=== PATIENT | female | born 1995 | race Caucasian/White ===

== ENCOUNTER 2019-04-06 12:12 | Inpatient (IN) | payer OTHER ==
[2019-04-06] MEDS ORDERED: SODIUM CHLORIDE 0.9% 1,000 ML IV STA (13:40)
[2019-04-06] MEDS ORDERED: MORPHINE SULFATE 4 MG/ML SYRINGE IVP STA ×2 (13:40→15:32)
[2019-04-06] MEDS ORDERED: ONDANSETRON 4 MG/2 ML VIAL IVP STA (13:40)
[2019-04-06 14:11] LABS: Anisocytosis Slight; Basophils # (A) 0.1 k/uL (0-0.2); Basophils % (A) 1 %; Eosinophils % (A) 0 %; HCT 30.8 % (34.0-46.0); HGB 9.3 gm/dL (11.4-16.0); Hypochromasia Marked; Lymphocytes # (A) 1.1 k/uL (1.0-4.8); Lymphocytes % (A) 10 %; MCH 21.4 pg (25.0-35.0); MCHC 30.3 g/dL (31.0-37.0); MCV 70.7 fL (80.0-100.0); Mean Platelet Volume 7.7; Microcytosis Marked; Monocytes # (A) 0.4 k/uL (0-1.0); Monocytes % (A) 3 %; Neutrophils # (A) 9.4 k/uL (1.3-7.7); Neutrophils % (A) 85 %; Platelet Count 295 k/uL (150-450); RBC 4.36 m/uL (3.80-5.40); RDW 19.1 % (11.5-15.5); WBC 11.1 k/uL (3.8-10.6)
[2019-04-06 14:26] LABS: ALT 16 U/L (4-34); AST 24 U/L (14-36); African American GFR (CKD) >90 (>60 ml/min/1.73 sqM); Albumin 3.9 g/dL (3.5-5.0); Alkaline Phosphatase 68 U/L (38-126); Amylase 54 U/L (30-110); Anion Gap 10 mmol/L; Blood Urea Nitrogen 15 mg/dL (7-17); Calcium 8.8 mg/dL (8.4-10.2); Carbon Dioxide 23 mmol/L (22-30); Chloride 105 mmol/L (98-107); Glucose 88 mg/dL (74-99); Non-African American GFR(CKD) 87 (>60 ml/min/1.73 sqM); Potassium 3.3 mmol/L (3.5-5.1); Sodium 138 mmol/L (137-145); Total Bilirubin 0.4 mg/dL (0.2-1.3); Total Protein 7.1 g/dL (6.3-8.2)
[2019-04-06 14:28] LABS: Amorphous Sediment,Urine Rare /hpf; Appearance,Urine Clear (Clear); Bilirubin,Urine Negative (Negative); Blood,Urine Large (Negative); Color,Urine Yellow; Glucose,Urine (UA) Negative (Negative); Ketones,Urine Negative (Negative); Leukocyte Esterase,Urine Negative (Negative); Mucus,Urine Rare /hpf; Nitrite,Urine Negative (Negative); PH, Urine 6.5 (5.0-8.0); Protein,Urine Trace (Negative); RBC,Urine >182 /hpf (0-5); Specific Gravity,Urine 1.016 (1.001-1.035); Squamous Epithelial Cell,Urine 3 /hpf (0-4); Urobilinogen,Urine <2.0 mg/dL (<2.0); WBC,Urine 7 /hpf (0-5)
--- NOTE | 2019-04-06 15:03 | ED ---
Abdominal Pain HPI - General Chief Complaint: Abdominal Pain Stated Complaint: ulcerative colitis Time Seen by Provider: 04/06/19 12:52 Source: patient Mode of arrival: ambulatory Limitations: no limitations - History of Present Illness Initial Comments: Patient is a 23-year-old female presenting to emergency Department with complaints of abdominal pain and weakness that has been increasing over the past week. Patient has history of ulcerative colitis and sees Dr. Ruiz. She did see Dr. Ruiz's PA today and they recommended her going to the ER for dehydration and possible admission. Patient states she has been in remission for approximately 2 years until about this past January. She started to have more frequent flareups and has not been eating very much. The last week she has been having intermittent abdominal pain, nausea, vomiting and no appetite. Patient is also been having frequent bouts of diarrhea with bloody stool. She has been on steroids for the past month and is currently on 20 mg of prednisone. In addition, patient has a positive for influenza B this past week so she has been coughing as well. Patient denies fever, shortness of breath. She has no other complaints at this time. Upon arrival to the ER, her vital signs are stable. - Related Data Allergies Allergy/AdvReac Type Severity Reaction Status Date / Time No Known Allergies Allergy Verified 04/06/19 12:24 Review of Systems ROS Statement: Those systems with pertinent positive or pertinent negative responses have been documented in the HPI. ROS Other: All systems not noted in ROS Statement are negative. Past Medical History Past Medical History: Rheumatoid Arthritis (RA) Additional Past Medical History / Comment(s): ulcerative colitis, lupus, autoimmune pancreatitis History of Any Multi-Drug Resistant Organisms: C-DIFF Date of last positivie culture/infection: 2017 Past Surgical History: Section, Orthopedic Surgery Past Psychological History: No Psychological Hx Reported Smoking Status: Never smoker Past Alcohol Use History: None Reported Past Drug Use History: None Reported General Exam - General Exam Comments Initial Comments: GENERAL: Well-appearing, well-nourished and in no acute distress. HEAD: Atraumatic, normocephalic. EYES: Pupils equal round and reactive to light, extraocular movements intact, sclera anicteric, conjunctiva are normal. ENT: TMs normal, nares patent, oropharynx clear without exudates. Dry mucous membranes. NECK: Normal range of motion, supple without lymphadenopathy or JVD. LUNGS: Breath sounds clear to auscultation bilaterally and equal. No wheezes rales or rhonchi. HEART: Regular rate and rhythm without murmurs, rubs or gallops. ABDOMEN: Mild generalized abdominal tenderness, slightly increased epigastric and right upper quadrant. Soft, normoactive bowel sounds. No guarding, no rebound. No masses appreciated. : Deferred EXTREMITIES: Normal range of motion, no pitting or edema. No clubbing or cyanosis. NEUROLOGICAL: Normal speech, normal gait. PSYCH: Normal mood, normal affect. SKIN: Warm, Dry, normal turgor, no rashes or lesions noted. Limitations: no limitations Course Vital Signs 04/06/19 04/06/19 04/06/19 12:21 14:01 15:32 Temperature 98.0 F 98.9 F Pulse Rate 73 77 72 Respiratory 19 18 16 Rate Blood Pressure 138/86 137/92 128/79 O2 Sat by Pulse 99 98 99 Oximetry 04/06/19 16:15 Temperature Pulse Rate 69 Respiratory 16 Rate Blood Pressure 111/81 O2 Sat by Pulse 98 Oximetry Medical Decision Making - Medical Decision Making Patient is a 23-year-old female presenting with UC flareup. Patient was sent in by Dr. Ruiz's office for her dehydration and acute flareup. Vital signs are stable upon arrival. Patient's lab work shows slight leukocytosis at 11.1, hemoglobin is 9.3 which patient states is elevated from last month from 8.2. Potassium is slightly low at 3.3, lactic acid is 1.7, and amylase and lipase are normal. Urine shows no signs of infection. Patient is given fluids and pain control. She reports only mild improvement in her symptoms. Given patient's history and current symptoms, patient would be admitted for IV fluids and a consult to GI, Dr. Ruiz. She is in agreement with this plan of care. Patient was accepted by Dr. Guaman. Case discussed with Dr. Izaguirre. - Lab Data Result diagrams: 04/06/19 13:05 04/06/19 13:05 Lab Results 04/06/19 04/06/19 04/06/19 Range/Units 13:05 13:05 13:05 WBC 11.1 H (3.8-10.6) k/uL RBC 4.36 (3.80-5.40) m/uL Hgb 9.3 L (11.4-16.0) gm/dL Hct 30.8 L (34.0-46.0) % MCV 70.7 L (80.0-100.0) fL MCH 21.4 L (25.0-35.0) pg MCHC 30.3 L (31.0-37.0) g/dL RDW 19.1 H (11.5-15.5) % Plt Count 295 (150-450) k/uL Neutrophils % 85 % Lymphocytes % 10 % Monocytes % 3 % Eosinophils % 0 % Basophils % 1 % Neutrophils # 9.4 H (1.3-7.7) k/uL Lymphocytes # 1.1 (1.0-4.8) k/uL Monocytes # 0.4 (0-1.0) k/uL Eosinophils # 0.0 (0-0.7) k/uL Basophils # 0.1 (0-0.2) k/uL Hypochromasia Marked Anisocytosis Slight Microcytosis Marked Sodium 138 (137-145) mmol/L Potassium 3.3 L (3.5-5.1) mmol/L Chloride 105 (98-107) mmol/L Carbon Dioxide 23 (22-30) mmol/L Anion Gap 10 mmol/L BUN 15 (7-17) mg/dL Creatinine 0.93 (0.52-1.04) mg/dL Est GFR (CKD-EPI)AfAm >90 (>60 ml/min/1.73 sqM) Est GFR (CKD-EPI)NonAf 87 (>60 ml/min/1.73 sqM) Glucose 88 (74-99) mg/dL Plasma Lactic Acid Seth (0.7-2.0) mmol/L Calcium 8.8 (8.4-10.2) mg/dL Total Bilirubin 0.4 (0.2-1.3) mg/dL AST 24 (14-36) U/L ALT 16 (4-34) U/L Alkaline Phosphatase 68 (38-126) U/L Total Protein 7.1 (6.3-8.2) g/dL Albumin 3.9 (3.5-5.0) g/dL Amylase 54 (30-110) U/L Lipase 112 (23-300) U/L Urine Color Urine Appearance (Clear) Urine pH (5.0-8.0) Ur Specific [place] (1.001-1.035) Urine Protein (Negative) Urine Glucose (UA) (Negative) Urine Ketones (Negative) Urine Blood (Negative) Urine Nitrite (Negative) Urine Bilirubin (Negative) Urine Urobilinogen (<2.0) mg/dL Ur Leukocyte Esterase (Negative) Urine RBC (0-5) /hpf Urine WBC (0-5) /hpf Ur Squamous Epith Cells (0-4) /hpf Amorphous Sediment (None) /hpf Urine Mucus (None) /hpf Urine HCG, Qual Not Detected (Not Detectd) 04/06/19 04/06/19 Range/Units 13:05 13:45 WBC (3.8-10.6) k/uL RBC (3.80-5.40) m/uL Hgb (11.4-16.0) gm/dL Hct (34.0-46.0) % MCV (80.0-100.0) fL MCH (25.0-35.0) pg MCHC (31.0-37.0) g/dL RDW (11.5-15.5) % Plt Count (150-450) k/uL Neutrophils % % Lymphocytes % % Monocytes % % Eosinophils % % Basophils % % Neutrophils # (1.3-7.7) k/uL Lymphocytes # (1.0-4.8) k/uL Monocytes # (0-1.0) k/uL Eosinophils # (0-0.7) k/uL Basophils # (0-0.2) k/uL Hypochromasia Anisocytosis Microcytosis Sodium (137-145) mmol/L Potassium (3.5-5.1) mmol/L Chloride (98-107) mmol/L Carbon Dioxide (22-30) mmol/L Anion Gap mmol/L BUN (7-17) mg/dL Creatinine (0.52-1.04) mg/dL Est GFR (CKD-EPI)AfAm (>60 ml/min/1.73 sqM) Est GFR (CKD-EPI)NonAf (>60 ml/min/1.73 sqM) Glucose (74-99) mg/dL Plasma Lactic Acid Seth 1.7 (0.7-2.0) mmol/L Calcium (8.4-10.2) mg/dL Total Bilirubin (0.2-1.3) mg/dL AST (14-36) U/L ALT (4-34) U/L Alkaline Phosphatase (38-126) U/L Total Protein (6.3-8.2) g/dL Albumin (3.5-5.0) g/dL Amylase (30-110) U/L Lipase (23-300) U/L Urine Color Yellow Urine Appearance Clear (Clear) Urine pH 6.5 (5.0-8.0) Ur Specific [place] 1.016 (1.001-1.035) Urine Protein Trace H (Negative) Urine Glucose (UA) Negative (Negative) Urine Ketones Negative (Negative) Urine Blood Large H (Negative) Urine Nitrite Negative (Negative) Urine Bilirubin Negative (Negative) Urine Urobilinogen <2.0 (<2.0) mg/dL Ur Leukocyte Esterase Negative (Negative) Urine RBC >182 H (0-5) /hpf Urine WBC 7 H (0-5) /hpf Ur Squamous Epith Cells 3 (0-4) /hpf Amorphous Sediment Rare H (None) /hpf Urine Mucus Rare H (None) /hpf Urine HCG, Qual (Not Detectd) Disposition Clinical Impression: Dehydration, Ulcerative colitis, chronic Disposition: ADMITTED IP TO THIS [facility] Condition: Stable Is patient prescribed a controlled substance at d/c from ED?: No Decision Date: 04/06/19 Decision Time: 15:35
[2019-04-06] MEDS ORDERED: ACETAMINOPHEN TAB 325 MG TAB PO PRN (15:32)
[2019-04-06] MEDS ORDERED: NALOXONE 0.4 MG/ML 1 ML VIAL IV PRN (15:32)
[2019-04-06] MEDS: traMADol 50 MG TAB PO PRN (19:59)
[2019-04-06] MEDS: MORPHINE SULFATE 4 MG/ML SYRINGE IV PRN (21:29)
[2019-04-06] MEDS: SODIUM CHLORIDE 0.9% 1,000 ML IV SCH (21:32)
[2019-04-06] MEDS: ONDANSETRON 4 MG/2 ML VIAL IVP PRN (22:19)
[2019-04-07] MEDS: MORPHINE SULFATE 4 MG/ML SYRINGE IV PRN ×6 (01:29→22:05)
[2019-04-07] MEDS: traMADol 50 MG TAB PO PRN ×4 (02:00→19:25)
[2019-04-07] MEDS: SODIUM CHLORIDE 0.9% 1,000 ML IV SCH ×2 (05:43→19:26)
[2019-04-07] MEDS: ONDANSETRON 4 MG/2 ML VIAL IVP PRN ×2 (07:42→20:43)
[2019-04-07] MEDS: PANTOPRAZOLE 40 MG/10 ML VIAL IV SCH (08:38)
[2019-04-07 11:06] LABS: Anisocytosis Slight; Basophils % (A) 0 %; Eosinophils % (A) 0 %; HGB 8.4 gm/dL (11.4-16.0); Hypochromasia Marked; Lymphocytes # (A) 2.6 k/uL (1.0-4.8); Lymphocytes % (A) 28 %; MCH 21.8 pg (25.0-35.0); MCV 72.6 fL (80.0-100.0); Mean Platelet Volume 7.8; Microcytosis Moderate; Monocytes # (A) 0.6 k/uL (0-1.0); Monocytes % (A) 7 %; Neutrophils # (A) 5.8 k/uL (1.3-7.7); Neutrophils % (A) 62 %; Platelet Count 270 k/uL (150-450); RBC 3.85 m/uL (3.80-5.40); RDW 19.4 % (11.5-15.5); WBC 9.4 k/uL (3.8-10.6)
[2019-04-07] MEDS: methylPREDNISolone SOD SUCCI 40 MG/ML 1 ML VIAL IV SCH ×2 (11:35→18:07)
[2019-04-07 11:51] VITALS: BMI 17.2
--- NOTE | 2019-04-07 13:09 | P.HPIM ---
History of Present Illness H&P Date: 04/07/19 Chief Complaint: Abdominal cramping History of presenting complaint: This is a very pleasant 43-year-old patient who follows with Dr. Richard. Patient also sees Dr. Kim the visualizer. Also follows with Dr. Danuta Ruiz the freight inspector. Patient has a known diagnosis of rheumatoid arthritis, autoimmune pancreatitis, ulcerative colitis and lupus. Patient also previously had the LEEP procedure for cervical cancer. Patient had been in remission for last 2 years. About 56 weeks ago patient started having increasing abdominal cramping and bloating of bloody stools. Patient is now up to eat today bloody stools a day. Patient's been losing weight not really able to eat much. Has been admitted fever up to 103. Surekha become rather dry. Sometimes get blis ters on the bouts of nose. Eyes are dry. Note note trouble with her menstrual cycle. In the evening of February states she Mildred the nurse practitioner Dr. Washington's office is put on prednisone. Decreased pedal for the same. His as prednisone was being weaned off her symptoms became worse. Also for 3 days patient been having cough congestion chest tightness., And went to Dr. Richard in the office and was found to be positive for influenza B. Patient went for the same. Started on IV fluids and Solu-Medrol. Review of systems: GEN.: Weak tired rundown and also weight EYES: None HEENT: None NECK: None RESPIRATORY: As above CARDIOVASCULAR: None GASTROINTESTINAL: As above GENITOURINARY: Currently on her menstrual cycle MUSCULOSKELETAL: None LYMPHATICS: None HEMATOLOGICAL: None PSYCHIATRY: None NEUROLOGICAL: None Past medical history to include: Rheumatoid arthritis, autoimmune pancreatitis, ulcerative colitis, pupils, cervical cancer with LEEP procedure Social history: Does not smoke or drink cold. 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 Lives with her parents. Physical examination: VITAL SIGNS: 98, 73, 19, 138/86, 99% room air GENERAL: BMI 17.3, propped in bed tired appearing. EYES: [Pupils equal. Conjunctiva pale l. HEENT: External appearance of nose and ears normal, oral cavity grossly normal. NECK: JVD not raised; masses not palpable. HEART: First and second heart sounds are normal; no edema. LUNGS: Respiratory rate increased, slightly decreased breath sounds. ABDOMEN: Soft, diffuse mild tenderness, no guarding rigidity, liver spleen not palpable, no masses palpable. PSYCH: Alert and oriented x3; mood and affect slightly anxiousl. NEUROLOGICAL: Cranial nerves grossly intact; no facial asymmetry, power and sensation grossly intact. LYMPHATICS: No lymph nodes palpable in the axilla and neck INVESTIGATIONS, reviewed in the clinical context: White count 10.1 hemoglobin 8.4 platelets 270 potassium 3.3 creatinine 0.9 C-reactive protein 11 Assessment: -Acute severe flare of ulcerative colitis, to rule out C. diff -Chronic rheumatoid arthritis -Autoimmune pancreatitis given-chronic lupus -Moderate protein calorie malnutrition from decreased oral intake -Macrocytic anemia chronic disease, and blood loss anemia from GI tract Plan: Patient is clear liquids. IV Solu-Medrol. GI was consulted. Care was discussed with the patient question were answered. Venodyne boots for DVT prophylaxis. Past Medical History Past Medical History: Rheumatoid Arthritis (RA) Additional Past Medical History / Comment(s): ulcerative colitis, lupus, autoimmune pancreatitis. HASNT HAD FLARE OF COLITIS OR PANCREATITIS FOR 2 YEARS. THIS PAST MONTH WITH WORSENING BELLY SYMPTOMS History of Any Multi-Drug Resistant Organisms: C-DIFF Date of last positivie culture/infection: 2016 MDRO Source:: STOOL Past Surgical History: Section, Orthopedic Surgery Past Psychological History: No Psychological Hx Reported, Unable to Obtain Smoking Status: Never smoker Past Alcohol Use History: None Reported Past Drug Use History: None Reported - Past Family History Mother Family Medical History: Diabetes Mellitus, Hyperlipidemia, Hypertension, Thyroid Disorder Father History Unknown: Yes Family Medical History: Hypertension Medications and Allergies Home Medications Medication Instructions Recorded Confirmed Type Iron Infusion 100 mg IVPB Q56D 04/06/19 04/06/19 History Multivitamins, Thera [Multivitamin 1 tab PO DAILY 04/06/19 04/06/19 History (formulary)] inFLIXimab [Remicade] 400 mg IVPB Q42D 04/06/19 04/06/19 History predniSONE See Taper PO DAILY 04/06/19 04/06/19 History Allergies Allergy/AdvReac Type Severity Reaction Status Date / Time No Known Allergies Allergy Verified 04/06/19 17:38 Physical Exam Vitals: Vital Signs Temp Pulse Pulse Resp BP BP Pulse Ox 04/07/19 08:48 98.0 F 66 16 107/44 99 04/07/19 00:19 97.7 F 58 L 16 108/70 100 04/07/19 00:00 65 16 04/06/19 20:13 97.9 F 65 16 97/69 100 04/06/19 17:30 98.0 F 57 L 20 116/74 98 04/06/19 16:59 98.2 F 04/06/19 16:15 69 16 111/81 98 04/06/19 15:32 72 16 128/79 99 04/06/19 14:01 98.9 F 77 18 137/92 98 04/06/19 12:21 98.0 F 73 19 138/86 99 Intake and Output 04/06/19 04/07/19 04/07/19 22:59 06:59 14:59 Intake Total 125 Output Total 325 300 550 Balance -200 -300 -550 Intake: Oral 125 Output: Urine 325 200 400 Emesis 100 150 Other: Voiding Method Toilet Toilet # Emeses 1 Weight 40.1 kg Results CBC & Chem 7: 04/07/19 10:14 04/06/19 13:05 Labs: Abnormal Lab Results - Last 24 Hours (Table) 04/06/19 04/06/19 04/06/19 Range/Units 13:05 13:05 13:05 WBC 11.1 H (3.8-10.6) k/uL Hgb 9.3 L (11.4-16.0) gm/dL Hct 30.8 L (34.0-46.0) % MCV 70.7 L (80.0-100.0) fL MCH 21.4 L (25.0-35.0) pg MCHC 30.3 L (31.0-37.0) g/dL RDW 19.1 H (11.5-15.5) % Neutrophils # 9.4 H (1.3-7.7) k/uL Potassium 3.3 L (3.5-5.1) mmol/L Urine Protein Trace H (Negative) Urine Blood Large H (Negative) Urine RBC >182 H (0-5) /hpf Urine WBC 7 H (0-5) /hpf Amorphous Sediment Rare H (None) /hpf Urine Mucus Rare H (None) /hpf Thrombosis Risk Factor Assmnt - Choose All That Apply Any of the Below Risk Factors Present?: No Other congenital or acquired thrombophilia - If yes, enter type in comment: No
[2019-04-07 14:30] LABS: Erythrocyte Sedimentation Rate 16 mm/hr (0-20)
[2019-04-08] MEDS: methylPREDNISolone SOD SUCCI 40 MG/ML 1 ML VIAL IV SCH ×4 (00:46→23:58)
[2019-04-08] MEDS: traMADol 50 MG TAB PO PRN ×3 (01:57→21:15)
[2019-04-08] MEDS: MORPHINE SULFATE 4 MG/ML SYRINGE IV PRN ×6 (01:58→23:01)
[2019-04-08] MEDS: SODIUM CHLORIDE 0.9% 1,000 ML IV SCH ×2 (06:26→19:15)
--- NOTE | 2019-04-08 06:51 | CONS ---
CONSULTATION DATE OF SERVICE: 04/07/2019. REASON FOR CONSULTATION: Exacerbation of ulcerative colitis. HISTORY OF PRESENT ILLNESS: The patient is 23-year-old pleasant young lady with history of ulcerative colitis diagnosed a few years ago who has been maintained on Remicade infusions on an outpatient basis for the last 2 years and has been in clinical remission. The patient also has history of rheumatoid arthritis for which she follows with Dr. Kim and also has history of autoimmune pancreatitis in the past. Her last Remicade infusion was about 6 weeks ago. Around Thanksgiving time she started having bloody diarrhea with 10 to 15 bowel movements daily. She was seen in the office and was started on oral prednisone at 40 mg daily. Her symptoms have significantly improved. She did have stool studies for C difficile toxin that was negative. When she tapered her prednisone to 20 mg daily, she started having worsening diarrhea with blood and mucus in the stool. She was having about 10 to 15 bowel movements daily and progressive weight loss of 15 pounds in the last 1 month duration. She had low-grade fever and yesterday it was 103. She became extremely dehydrated, very tired, weak and hence came into the emergency room and subsequently admitted to the hospital for further evaluation. She had a CT of the abdomen and pelvis done on an outpatient basis that showed evidence of diffuse colitis. She was started on IV Solu-Medrol 40 mg q.8 hours and this morning she is feeling better. Abdominal pain has improved. She had only one bowel movement today with no blood. No nausea, vomiting. On a clear liquid diet, tolerating well. No fever today. Stool for C difficile toxin has been requested, which is still pending. PAST MEDICAL HISTORY: Significant for ulcerative colitis, autoimmune pancreatitis, rheumatoid arthritis, cervical cancer. PAST SURGICAL HISTORY: Colonoscopy in October of 2018 that showed normal colon with no active colitis, history of a LEEP procedure. SOCIAL HISTORY: No smoking or alcohol use. FAMILY HISTORY: Unremarkable. MEDICATIONS: Medications at home include prednisone 20 mg daily, iron infusion, Remicade infusions 400 mg every 6 weeks, multivitamin. ALLERGIES: None. REVIEW OF SYSTEMS: CARDIOPULMONARY: No chest pain or shortness of breath. GENITOURINARY: No dysuria or hematuria. MUSCULOSKELETAL: Some back pain. NEUROLOGY: Unremarkable. PSYCHIATRY: Unremarkable. ENT/VISION: Unremarkable. CONSTITUTIONAL: Weight loss of 15 pounds. No fever, chills or night sweats. HEMATOLOGY: Unremarkable other than mild anemia. ENDOCRINE: Unremarkable. PHYSICAL EXAMINATION: On physical examination, she appears comfortable, in no apparent distress. Vital signs are stable. Blood pressure 107/72, pulse rate 52, temperature 97.8. HEENT EXAMINATION: Unremarkable. Conjunctivae pink. Sclerae anicteric. Oral cavity no lesions. NECK: No JVD or lymph node enlargement. CHEST: Clear to auscultation. HEART: Regular rate and rhythm. ABDOMEN: Soft. Bowel sounds are positive. No organomegaly. There was mild diffuse tenderness noted. EXTREMITIES: No pedal edema. SKIN: No rashes. NEURO: She is alert and oriented x3. No focal deficits. LABS: WBC 11.1, hemoglobin 9.3, platelets were 295. Basic metabolic panel is within normal limits. Albumin 3.9. CRP is 11. ALT, AST, T-bilirubin and alkaline phosphatase are within normal limits. IMPRESSION: 1. History of ulcerative colitis diagnosed 4 years ago. The patient maintained on Remicade infusions for every 6 weeks for the last 2 years and has been in clinical remission. She started having this flare up with bloody diarrhea and abdominal pain, weight loss for the last 4 weeks duration was started on prednisone on outpatient basis in the beginning of February at 40 mg daily and patient initially responded to the treatment. When the prednisone was decreased to 20 mg daily, she started having worsening symptoms with bloody diarrhea and abdominal pain and hence was admitted to the hospital yesterday. She was started on IV Solu-Medrol and today she had only one bowel movement and feeling much better. Continues to have mild abdominal pain. Remains on a clear liquid diet, tolerating well. Stool for Clostridium difficile toxin has been requested, which was negative. 2. History of Clostridium difficile colitis 1 year ago. 3. Autoimmune pancreatitis, remains stable. 4. History of rheumatoid arthritis. 5. Anemia, most likely secondary to iron deficiency and blood loss. RECOMMENDATIONS: 1. Continue IV Solu-Medrol 40 mg q.8 hours and tomorrow will decrease it to 20 mg q.8 hours. 2. Advance to a full liquid diet. 3. Monitor labs closely. 4. Await stool for C difficile toxin. 5. We will review office records in regard to biologic therapy and consider modification based on her clinical course. Thank you for this consultation. MMODL / IJN: [id number] /
[2019-04-08] MEDS: ONDANSETRON 4 MG/2 ML VIAL IVP PRN ×2 (06:57→16:34)
[2019-04-08] MEDS: PANTOPRAZOLE 40 MG/10 ML VIAL IV SCH (08:50)
--- NOTE | 2019-04-08 16:32 | XR ---
EXAMINATION TYPE: XR abdomen 2V DATE OF EXAM: 04/08/2019 COMPARISON: None INDICATION: Abdominal pain history of colitis TECHNIQUE: Single view abdomen upright and supine views FINDINGS: Nonspecific bowel gas is present. This appears to be colonic. Couple of air-fluid levels are within t he midabdomen. Psoas margins are normal. No organomegaly is present. IMPRESSION: 1. Nonspecific abdomen.
[2019-04-08] MEDS: IOPAMIDOL CONTRAST (ORAL USE) VIAL PO PRN ×2 (16:33→17:18)
--- NOTE | 2019-04-08 19:25 | P.GSCN ---
History of Present Illness Consult date: 04/08/19 Reason for Consult: Abdominal pain History of present illness: 23-year-old female with history of ulcerative colitis. Hospitalized for an exac erbation. Today was found to have increasing upper abdominal pain with bloating. X-ray showed no evidence of perforation. CT abdomen and pelvis shows inflammatory changes extending from the proximal descending colon to the rectum. Patient currently on IV steroids. Outpatient Remicade has been going on for the last few years. She has been on oral steroids for the last 3-4 weeks she states. C. diff was checked and was normal. Patient is afebrile without tachycardia. White blood cell count is normal. Review of Systems The patient denies any acute changes in vision or hearing, no dysphagia or odynophagia, no chest pain or shortness of breath, no dysuria or hematuria, no headache, no runny nose, no unexplained weight loss Past Medical History Past Medical History: Rheumatoid Arthritis (RA) Additional Past Medical History / Comment(s): ulcerative colitis, lupus, autoimmune pancreatitis. HASNT HAD FLARE OF COLITIS OR PANCREATITIS FOR 2 YEARS. THIS PAST MONTH WITH WORSENING BELLY SYMPTOMS History of Any Multi-Drug Resistant Organisms: C-DIFF Year Discovered:: 2017 MDRO Source:: STOOL Past Surgical History: Section, Orthopedic Surgery Past Psychological History: No Psychological Hx Reported, Unable to Obtain Smoking Status: Never smoker Past Alcohol Use History: None Reported Past Drug Use History: None Reported - Past Family History Mother Family Medical History: Diabetes Mellitus, Hyperlipidemia, Hypertension, Thyroid Disorder Father History Unknown: Yes Family Medical History: Hypertension Medications and Allergies Home Medications Medication Instructions Recorded Confirmed Type Iron Infusion 100 mg IVPB Q56D 04/06/19 04/06/19 History Multivitamins, Thera [Multivitamin 1 tab PO DAILY 04/06/19 04/06/19 History (formulary)] inFLIXimab [Remicade] 400 mg IVPB Q42D 04/06/19 04/06/19 History predniSONE See Taper PO DAILY 04/06/19 04/06/19 History Allergies Allergy/AdvReac Type Severity Reaction Status Date / Time No Known Allergies Allergy Verified 04/06/19 17:38 Surgical - Exam Vital Signs Temp Pulse Resp BP Pulse Ox 98.0 F 73 19 138/86 99 04/06/19 12:21 04/06/19 12:21 04/06/19 12:21 04/06/19 12:21 04/06/19 12:21 Physical exam: General: Well-developed, slightly malnourished, appears younger than her age, appears comfortable HEENT: Normocephalic, sclerae nonicteric Abdomen: Mild distention, mild tympany upper abdomen, mild diffuse tenderness without rebound or guarding Extremities: No edema Neuro: Alert and oriented Results - Labs 04/07/19 10:14 04/06/19 13:05 Assessment and Plan (1) Abdominal pain Narrative/Plan: 23-year-old female with worsening abdominal pain and bloating with history of ulcerative colitis. CAT scan reviewed with the patient and her family. Inflammatory changes noted without gross evidence of megacolon or perforation. No definite obstruction seen at this time. Continue nothing by mouth for now. Continue IV steroids. We'll follow closely with you. Current Visit: Yes Status: Acute Code(s): R10.9 - UNSPECIFIED ABDOMINAL PAIN SNOMED Code(s): 85546653
--- NOTE | 2019-04-08 19:53 | PN ---
PROGRESS NOTE DATE OF SERVICE: 04/08/2019 Patient is a 23-year-old pleasant young girl with ulcerative colitis diagnosed 5 years ago, maintained on Remicade infusions for the last 2 years and has been in clinical remission. She started having a flare up since Thanksgiving of last year and has been maintained on prednisone 40 mg daily on an outpatient basis. When she was down to 20 mg daily, she had worsening symptoms of bloody diarrhea, 10-15 bowel movements daily, diffuse abdominal pain and hence admitted to the hospital for further management. She is on IV steroids for the last 3 days. She was gradually improving. However, this morning, she is complaining of worsening abdominal pain with abdominal distention and abdominal bloating. She is not able to tolerate any food intake. She denies any fever, chills, or night sweats. She had 2 bowel movements today, 2 of which were bloody. PHYSICAL EXAMINATION: Blood pressure is 125/88, pulse is 64, temperature 98. HEENT examination unremarkable. Conjunctivae pink. Sclerae anicteric. Oral cavity no lesions. NECK: No JVD or lymph node enlargement. Chest clear to auscultation. HEART: Regular rate and rhythm. ABDOMEN was soft, but it was slightly distended. There was mild diffuse tenderness noted throughout the abdomen, but there was no rebound or rigidity. EXTREMITIES: No pedal edema. SKIN: No rashes. NEUROLOGIC: Alert and oriented x3. No focal deficits. LABS: From today WBC is 9.4, hemoglobin 8.4, platelets 270. CRP was 11. Abdominal x-rays were obtained. Stat abdominal x-rays were obtained which showed nonspecific abdomen. IMPRESSION: 1. Severe flare-up of ulcerative colitis, on IV steroids. 2. Solu-Medrol decreased to 20 mg q.8 hours, developed abdominal distention and abdominal pain. Rule out toxic megacolon. Abdominal x-rays did not show any significant dilation of the colon. No evidence of free air noted. 3. On IV Solu-Medrol 20 mg q.8 hours. 4. History of autoimmune pancreatitis, stable. 5. History of rheumatoid arthritis. RECOMMENDATIONS: 1. Continue with IV Solu-Medrol 20 mg q.8 hours. 2. Repeat labs in the morning. 3. Discussed with Dr. Monaco who was consulted and will obtain a CT of the abdomen and pelvis with contrast to rule out perforation. 4. Keep n.p.o. for now and we will follow her closely during her hospital stay. Thank you for this consultation. MMPHILL / IJN: [id number] /
--- NOTE | 2019-04-08 20:00 | CT ---
EXAMINATION TYPE: CT abdomen pelvis w con DATE OF EXAM: 04/08/2019 COMPARISON: None HISTORY: Abdominal distention. Colitis CT DLP: 293.9 mGycm Automated exposure control for dose reduction was used. CONTRAST: Performed with IV Contrast, patient injected with 100 mL of Isovue 300. Multiple axial sections were obtained from the diaphragm to the floor the pelvis with oral and intrav enous contrast. Lung bases are clear. There is no pleural effusion. Heart size is normal. There is no pericardial eff usion. Liver spleen pancreas gallbladder appear normal. Bile ducts are not dilated. There is no adrenal mass. Stomach appears normal. Kidneys show satisfactory contrast opacification. T here is no hydronephrosis. Delayed images show normal renal excretion. There is no retroperitoneal ad enopathy. Bladder distends smoothly. The uterus is anteverted. There is no free fluid in the pelvis. There is 3 cm cyst on the right ovary. There is 2 cm cyst left ovary. There is normal contrast opacification of the bowel. There is no sign of a bowel obstruction. There i s no ascites or free air. The appendix appears normal. Appendix is medial. There is mild wall thickening of the sigmoid colon. There is very minimal pericolic edema involving t he sigmoid colon. IMPRESSION: Ovarian cysts. There is straightening and mild wall thickening of the sigmoid colon consistent with nonspecific coli tis. Minimal pericolic edema. No evidence of an abscess.
--- NOTE | 2019-04-09 00:53 | P.PN ---
Progress Note - Text Progress Note Date: 04/09/19 Chief Complaint: Abdominal cramping History of presenting complaint: This is a very pleasant 43-year-old patient who follows with Dr. Richard. Patient also sees Dr. Kim the supervisor gate services. Also follows with Dr. Danuta Ruiz the seal skinner. Patient has a known diagnosis of rheumatoid arthritis, autoimmune pancreatitis, ulcerative colitis and lupus. Patient also previously had the LEEP procedure for cervical cancer. Patient had been in remission for last 2 years. About 56 weeks ago patient started having increasing abdominal cramping and bloating of bloody stools. Patient is now up to eat today bloody stools a day. Patient's been losing weight not really able to eat much. Has been admitted fever up to 103. [place] become rather dry. Sometimes get blisters on the bouts of nose. Eyes are dry. Note note trouble with her menstrual cycle. In the evening of February states she Mildred the nurse practitioner Dr. Washington's office is put on prednisone. Decreased pedal for the same. His as prednisone was being weaned off her symptoms became worse. Also for 3 days patient been having cough congestion chest tightness., And went to Dr. Richard in the office and was found to be positive for influenza B. Patient went for the same. Started on IV fluids and Solu-Medrol. Admitted with severe flareup of ulcerative colitis. Recently positive for him. He Today-has had no further diarrhea since yesterday. No blood in the stool. Small flecks of mucus. Abdominal cramping is better. Did tolerate some liquid diet. Respiratory symptoms much improved. Patient's boyfriend at the bedside Review of systems: Was done for constitutional, cardiovascular, GI, pulmonary. relevant finding as above Active Medications Acetaminophen (Tylenol Tab) 650 mg PO Q6HR PRN PRN Reason: Mild Pain or Fever > 100.5 Sodium Chloride (Saline 0.9%) 1,000 mls @ 75 mls/hr IV .[id number] [facility] Last Admin: 04/08/19 19:15 Dose: 75 mls/hr Documented by: Methylprednisolone Sodium Succinate (Solu-Medrol) 20 mg IV Q8HR [facility] Last Admin: 04/08/19 23:58 Dose: 20 mg Documented by: Morphine Sulfate (Morphine Sulfate (Inj)) 4 mg IV Q4HR PRN PRN Reason: Severe Pain Last Admin: 04/08/19 23:01 Dose: 4 mg Documented by: Naloxone HCl (Narcan) 0.2 mg IV Q2M PRN PRN Reason: Opioid Reversal Ondansetron HCl (Zofran) 4 mg IVP Q8HR PRN PRN Reason: Nausea And Vomiting Last Admin: 04/08/19 16:34 Dose: 4 mg Documented by: Pantoprazole Sodium (Protonix) 40 mg IV DAILY [facility] Last Admin: 04/08/19 08:50 Dose: 40 mg Documented by: Tramadol HCl (Ultram) 50 mg PO Q6H PRN PRN Reason: Moderate Pain Last Admin: 04/08/19 21:15 Dose: 50 mg Documented by: Physical examination: VITAL SIGNS: 97.4, 91, 16, 133/91, 95% room air GENERAL: Laying in bed appears better EYES: [Pupils equal. Conjunctiva pale l. HEENT: External appearance of nose and ears normal, oral cavity grossly normal. NECK: JVD not raised; masses not palpable. HEART: First and second heart sounds are normal; no edema. LUNGS: Respiratory rate increased, slightly decreased breath sounds. ABDOMEN: Soft, decreased tenderness, mild bloating, no guarding rigidity, liver spleen not palpable, no masses palpable. PSYCH: Alert and oriented x3; mood and affect slightly anxiousl. INVESTIGATIONS, reviewed in the clinical context: White count 7.4 hemoglobin 11.2 Previous testing White count 10.1 hemoglobin 8.4 platelets 270 potassium 3.3 creatinine 0.9 C-reactive protein 11 Assessment: -Acute severe flare of ulcerative colitis, improving -Chronic rheumatoid arthritis -Autoimmune pancreatitis given-chronic lupus -Moderate protein calorie malnutrition from decreased oral intake -Macrocytic anemia chronic disease, and blood loss anemia from GI tract Plan: Care was discussed at length with the patient and her boyfriend. Special emphasis on a diet. Dose of Solu-Medrol is being cut back. Encouraged to ambulate. Tamiflu is not indicated has symptoms have been present for a while and patient's respiratory symptoms are improved
[2019-04-09] MEDS: MORPHINE SULFATE 4 MG/ML SYRINGE IV PRN ×5 (03:09→20:11)
[2019-04-09] MEDS: PANTOPRAZOLE 40 MG/10 ML VIAL IV SCH (07:32)
[2019-04-09] MEDS: methylPREDNISolone SOD SUCCI 40 MG/ML 1 ML VIAL IV SCH ×3 (07:32→22:52)
[2019-04-09 07:45] LABS: Anisocytosis Slight; Basophils % (A) 0 %; Eosinophils % (A) 0 %; Hypochromasia Marked; Lymphocytes # (A) 1.6 k/uL (1.0-4.8); Lymphocytes % (A) 16 %; MCH 21.6 pg (25.0-35.0); MCHC 29.5 g/dL (31.0-37.0); MCV 73.1 fL (80.0-100.0); Microcytosis Moderate; Monocytes # (A) 0.4 k/uL (0-1.0); Monocytes % (A) 4 %; Neutrophils # (A) 7.9 k/uL (1.3-7.7); Neutrophils % (A) 79 %; Platelet Count 344 k/uL (150-450); RBC 3.69 m/uL (3.80-5.40); RDW 18.8 % (11.5-15.5); WBC 10.1 k/uL (3.8-10.6)
--- NOTE | 2019-04-09 12:35 | PN ---
PROGRESS NOTE DATE OF SERVICE: 04/09/2019 Patient is a 23-year-old pleasant white female admitted to the hospital with exacerbation of ulcerative colitis. She has been in the hospital for four days, on IV steroids at 20 mg q.8 hours. She is feeling the same today, still has mild abdominal distention. She had about five loose watery bowel movements yesterday with no blood in the stool. She did complain of severe abdominal pain yesterday and since Surgery was consulted, Dr. Monaco evaluated the patient. She did have CT of the abdomen and pelvis done that did not show any free air. There was mild thickening of the sigmoid colon and very, very minimal pericolonic edema involving the sigmoid colon noted. She denies any fever, chills, night sweats. She currently remains NPO. PHYSICAL EXAMINATION: On physical examination, she is comfortable, in no apparent distress. VITAL SIGNS: Stable. Blood pressure is 103/66, pulse rate 75, temperature 97.8. HEENT: Examination unremarkable. Conjunctivae pink. Anicteric sclerae. Oral cavity, no lesions. NECK: No JVD or lymph node enlargement. CHEST: Clear to auscultation. HEART: Regular rate and rhythm. ABDOMEN: Soft, slightly distended but overall is very soft. Mild tenderness in the left lower quadrant area. Bowel sounds are positive. No organomegaly. EXTREMITIES: No pedal edema. SKIN: No rashes. NEUROLOGIC: She is alert and oriented x3. No focal deficits. LABS: WBC 10.1, hemoglobin 8, platelets 344. C. diff toxin was negative. IMPRESSION: Acute exacerbation of ulcerative colitis, on IV Solu-Medrol [address] of the abdomen was done yesterday, did not show any perforation or toxic megacolon. There was mild thickening of the sigmoid colon with pericolonic edema noted. She still has five to six loose watery bowel movements daily. RECOMMENDATIONS: 1. Continue with IV Solu-Medrol. 2. Will start on clear liquid diet if okay with Dr. Monaco. 3. Will repeat CRP tomorrow. 4. Will plan on changing to oral prednisone 60 mg daily tomorrow if she is doing better. The plan was discussed with the patient, she is agreeable to it. Thank you for this consultation. MMODL / IJN: [id number] /
--- NOTE | 2019-04-09 12:40 | P.PN ---
Subjective Progress Note Date: 04/09/19 Principal diagnosis: Abdominal pain Patient feels better today. White blood cell count remains normal. She is afebrile. No tachycardia. She states her abdomen is less distended. She would like to try liquids. She did have a small loose stool. Objective - Vital Signs Vital signs: Vital Signs Temp 97.8 F 04/09/19 05:31 Pulse 75 04/09/19 05:31 Resp 15 04/09/19 05:31 BP 103/66 04/09/19 05:31 Pulse Ox 99 04/09/19 05:31 Intake & Output 04/08/19 04/09/19 04/09/19 18:59 06:59 18:59 Intake Total 237 Output Total 180 700 Balance 57 -700 Intake: Oral 237 Output: Urine 180 700 Other: Voiding Method Toilet # Voids 1 1 # Bowel Movements 1 - Exam Abdomen: Soft, less distended, mild mid abdominal tenderness - Labs CBC & Chem 7: 04/09/19 07:17 04/06/19 13:05 Labs: Abnormal Lab Results - Last 24 Hours (Table) 04/09/19 Range/Units 07:17 RBC 3.69 L (3.80-5.40) m/uL Hgb 8.0 L (11.4-16.0) gm/dL Hct 27.0 L (34.0-46.0) % MCV 73.1 L (80.0-100.0) fL MCH 21.6 L (25.0-35.0) pg MCHC 29.5 L (31.0-37.0) g/dL RDW 18.8 H (11.5-15.5) % Neutrophils # 7.9 H (1.3-7.7) k/uL Assessment and Plan (1) Abdominal pain Narrative/Plan: Patient doing better today. Begin clear liquids. Ambulate. Continue IV steroids. Current Visit: Yes Status: Acute Code(s): R10.9 - UNSPECIFIED ABDOMINAL PAIN SNOMED Code(s): 98014829
[2019-04-09] MEDS: SODIUM CHLORIDE 0.9% 1,000 ML IV SCH (13:06)
[2019-04-09] MEDS: ONDANSETRON 4 MG/2 ML VIAL IVP PRN (13:26)
[2019-04-09] MEDS: traMADol 50 MG TAB PO PRN ×2 (15:20→22:52)
--- NOTE | 2019-04-09 23:37 | P.PN ---
Progress Note - Text Progress Note Date: 04/09/19 Chief Complaint: Abdominal cramping History of presenting complaint: This is a very pleasant 43-year-old patient who follows with Dr. Richard. Patient also sees Dr. Kim the scrap metal processing worker. Also follows with Dr. Danuta Ruiz the sole rounding machine operator. Patient has a known diagnosis of rheumatoid arthritis, autoimmune pancreatitis, ulcerative colitis and lupus. Patient also previously had the LEEP procedure for cervical cancer. Patient had been in remission for last 2 years. About 56 weeks ago patient started having increasing abdominal cramping and bloating of bloody stools. Patient is now up to eat today bloody stools a day. Patient's been losing weight not really able to eat much. Has been admitted fever up to 103. [place] become rather dry. Sometimes get blisters on the bouts of nose. Eyes are dry. Note note trouble with her menstrual cycle. In the evening of February states she Mildred the nurse practitioner Dr. Washington's office is put on prednisone. Decreased pedal for the same. His as prednisone was being weaned off her symptoms became worse. Also for 3 days patient been having cough congestion chest tightness., And went to Dr. Richard in the office and was found to be positive for influenza B. Patient went for the same. Started on IV fluids and Solu-Medrol. Admitted with severe flareup of ulcerative colitis. Recently positive for influenza B Today-abdominal cramping is better. Less bloating. Had 3 bowel movements yesterday. Small amount of blood. On clear liquid diet no fever. Review of systems: Was done for constitutional, cardiovascular, GI, pulmonary. relevant finding as above Active Medications Acetaminophen (Tylenol Tab) 650 mg PO Q6HR PRN PRN Reason: Mild Pain or Fever > 100.5 Sodium Chloride (Saline 0.9%) 1,000 mls @ 75 mls/hr IV .[id number] [facility] Last Admin: 04/09/19 13:06 Dose: 75 mls/hr Documented by: Methylprednisolone Sodium Succinate (Solu-Medrol) 20 mg IV Q8HR [facility] Last Admin: 04/09/19 22:52 Dose: 20 mg Documented by: Morphine Sulfate (Morphine Sulfate (Inj)) 4 mg IV Q4HR PRN PRN Reason: Severe Pain Last Admin: 04/09/19 20:11 Dose: 4 mg Documented by: Naloxone HCl (Narcan) 0.2 mg IV Q2M PRN PRN Reason: Opioid Reversal Ondansetron HCl (Zofran) 4 mg IVP Q8HR PRN PRN Reason: Nausea And Vomiting Last Admin: 04/09/19 13:26 Dose: 4 mg Documented by: Pantoprazole Sodium (Protonix) 40 mg IV DAILY [facility] Last Admin: 04/09/19 07:32 Dose: 40 mg Documented by: Tramadol HCl (Ultram) 50 mg PO Q6H PRN PRN Reason: Moderate Pain Last Admin: 04/09/19 22:52 Dose: 50 mg Documented by: Physical examination: VITAL SIGNS: 97.7, 82, 18, 105/65, 98% room air GENERAL: Laying in bed pertinent distress EYES: [Pupils equal. Conjunctiva pale l. HEENT: External appearance of nose and ears normal, oral cavity grossly normal. NECK: JVD not raised; masses not palpable. HEART: First and second heart sounds are normal; no edema. LUNGS: Respiratory rate increased, slightly decreased breath sounds. ABDOMEN: Soft, mild tenderness, mild bloating, no guarding rigidity, liver spleen not palpable, no masses palpable. PSYCH: Alert and oriented x3; mood and affect slightly anxiousl. INVESTIGATIONS, reviewed in the clinical context: white count 10.1 hemoglobin 8 Previous testing White count 10.1 hemoglobin 8.4 platelets 270 potassium 3.3 creatinine 0.9 C-reactive protein 11 Assessment: -Acute severe flare of ulcerative colitis, improvingslowly -Chronic rheumatoid arthritis -Autoimmune pancreatitis given-chronic lupus -Moderate protein calorie malnutrition from decreased oral intake -Macrocytic anemia chronic disease, and blood loss anemia from GI tract Plan: continue on IV Solu-Medrol 20 mg every 8. On a clear liquid diet. Advance as tolerated. Patient has been out of bed. Encouraged to ambulate. Discussed. Expected another 1 or 2 days of hospital.
[2019-04-10] MEDS: MORPHINE SULFATE 4 MG/ML SYRINGE IV PRN ×6 (00:38→21:50)
[2019-04-10] MEDS: SODIUM CHLORIDE 0.9% 1,000 ML IV SCH ×2 (02:18→15:50)
[2019-04-10] MEDS: traMADol 50 MG TAB PO PRN ×3 (07:28→23:45)
[2019-04-10] MEDS: methylPREDNISolone SOD SUCCI 40 MG/ML 1 ML VIAL IV SCH ×2 (09:00→15:40)
[2019-04-10] MEDS: PANTOPRAZOLE 40 MG/10 ML VIAL IV SCH (09:00)
--- NOTE | 2019-04-10 10:09 | PN ---
PROGRESS NOTE DATE OF SERVICE: 04/10/2019 Patient is a 23-year-old pleasant young girl admitted to hospital with exacerbation of ulcerative colitis. CT scan done 2 days ago showed mild thickening of the sigmoid colon. She is maintained on Remicade infusions on an outpatient basis. Currently on Solu-Medrol 20 mg q.8 hours. She had 6 bowel movements a day yesterday. No bleeding. Today she had one bowel movement with some rectal urgency. She remains on a clear liquid diet and does not feel very well. She has some abdominal distention and abdominal bloating, but no abdominal pain. No fever, chills or night sweats. PHYSICAL EXAMINATION: Appears comfortable, in no apparent distress. Vital signs stable. Blood pressure is 127/62, pulse rate 53, temperature 97.5. HEENT examination unremarkable. Conjunctivae pink. Sclerae anicteric. Oral cavity no lesions. NECK: No JVD or lymph node enlargement. Chest clear to auscultation. HEART: Regular rate and rhythm. ABDOMEN: Soft, it was slightly distended, but it was very soft, nontender. Bowel sounds are positive. No organomegaly. EXTREMITIES: No pedal edema. SKIN no rashes. NEUROLOGIC: Alert and oriented x3. No focal deficits. LABS: WBC 10, hemoglobin 8, platelets 344. CRP is less than 5. C difficile are negative. IMPRESSION: 1. Exacerbation of ulcerative colitis. Presently on Solu-Medrol 20 mg q.8 hours. Day #4, gradually improving. CRP has normalized. 2. Anemia secondary to exacerbation of ulcerative colitis. Bleeding has resolved. 3. History of autoimmune pancreatitis. RECOMMENDATIONS: 1. Continue with Solu-Medrol 20 mg q.8 hours today. 2. We will advance diet as tolerated. 3. Will change the IV steroids to oral prednisone tomorrow morning at 60 mg daily and taper it by 5 mg every week. 4. Patient was advised to resume her Remicade infusions as soon as she is discharged from the hospital. 5. We will follow with you closely during her hospital stay. Thank you for this consultation. MMPHILL / ANDRESN: [id number] /
--- NOTE | 2019-04-10 14:37 | P.PN ---
Subjective Progress Note Date: 04/10/19 Principal diagnosis: Abdominal pain Patient had some solid foods earlier today. Following that describe some bloating and abdominal cramps. She has had about 8 small liquid stools since yesterday. Still feels much better than admission. She is afebrile. Objective - Vital Signs Vital signs: Vital Signs Temp 98.0 F 04/10/19 14:02 Pulse 57 L 04/10/19 14:02 Resp 18 04/10/19 14:02 BP 117/64 04/10/19 14:02 Pulse Ox 97 04/10/19 14:02 Intake & Output 04/09/19 04/10/19 04/10/19 18:59 06:59 18:59 Intake Total 300 650 300 Balance 300 650 300 Weight 40.1 kg Intake: Oral 300 650 300 Other: Voiding Method Toilet # Voids 1 2 1 - Exam Abdomen: Soft, mild distention, mild diffuse tenderness - Labs CBC & Chem 7: 04/09/19 07:17 04/06/19 13:05 Labs: Microbiology - Last 24 Hours (Table) 04/09/19 07:17 Blood Culture - Preliminary Blood No Growth after 24 hours Assessment and Plan (1) Abdominal pain Narrative/Plan: Patient certainly doing better. Continue IV steroids. Continue diet as tolerated. Will follow. Current Visit: Yes Status: Acute Code(s): R10.9 - UNSPECIFIED ABDOMINAL PAIN SNOMED Code(s): 49165016
[2019-04-10 23:01] VITALS: RESP 16
--- NOTE | 2019-04-10 23:36 | P.PN ---
Progress Note - Text Progress Note Date: 04/10/19 Chief Complaint: Abdominal cramping Interval history: This is a very pleasant 43-year-old patient who follows with Dr. Richard. Patient also sees Dr. Kim the claim service representative. Also follows with Dr. Danuta Ruiz the flow machine operator. Patient has a known diagnosis of rheumatoid arthritis, autoimmune pancreatitis, ulcerative colitis and lupus. Patient also previously had the LEEP procedure for cervical cancer. Patient had been in remission for last 2 years. About 56 weeks ago patient started having increasing abdominal cramping and bloating of bloody stools. Patient is now up to eat today bloody stools a day. Patient's been losing weight not really able to eat much. Has been admitted fever up to 103. [place] become rather dry. Sometimes get blisters on the bouts of nose. Eyes are dry. Note note trouble with her menstrual cycle. In the evening of February states she Mildred the nurse practitioner Dr. Washington's office is put on prednisone. Decreased pedal for the same. His as prednisone was being weaned off her symptoms became worse. Also for 3 days patient been having cough congestion chest tightness., And went to Dr. Richard in the office and was found to be positive for influenza B. Patient went for the same. Started on IV fluids and Solu-Medrol. Admitted with severe flareup of ulcerative colitis. Recently positive for influenza B Today-abdominal cramping slowly improving. Intermittent bloating. . Oral intake improving.. Review of systems: Was done for constitutional, cardiovascular, GI, pulmonary. relevant finding as above Active Medications Acetaminophen (Tylenol Tab) 650 mg PO Q6HR PRN PRN Reason: Mild Pain or Fever > 100.5 Sodium Chloride (Saline 0.9%) 1,000 mls @ 75 mls/hr IV .[id number] [facility] Last Admin: 04/10/19 15:50 Dose: 75 mls/hr Documented by: Methylprednisolone Sodium Succinate (Solu-Medrol) 20 mg IV Q8HR [facility] Last Admin: 04/10/19 15:40 Dose: 20 mg Documented by: Morphine Sulfate (Morphine Sulfate (Inj)) 4 mg IV Q4HR PRN PRN Reason: Severe Pain Last Admin: 04/10/19 21:50 Dose: 4 mg Documented by: Naloxone HCl (Narcan) 0.2 mg IV Q2M PRN PRN Reason: Opioid Reversal Ondansetron HCl (Zofran) 4 mg IVP Q8HR PRN PRN Reason: Nausea And Vomiting Last Admin: 04/09/19 13:26 Dose: 4 mg Documented by: Pantoprazole Sodium (Protonix) 40 mg IV DAILY [facility] Last Admin: 04/10/19 09:00 Dose: 40 mg Documented by: Tramadol HCl (Ultram) 50 mg PO Q6H PRN PRN Reason: Moderate Pain Last Admin: 04/10/19 15:37 Dose: 50 mg Documented by: Physical examination: VITAL SIGNS: 98, 57, 18, 11 7/64, 97% room air GENERAL: Sitting up in bed, more comfortable EYES: [Pupils equal. Conjunctiva pale l. HEENT: External appearance of nose and ears normal, oral cavity grossly normal. NECK: JVD not raised; masses not palpable. HEART: First and second heart sounds are normal; no edema. LUNGS: Respiratory rate normal, fair entry ABDOMEN: Soft, minimal tenderness, mild bloating, no guarding rigidity, liver spleen not palpable, no masses palpable. PSYCH: Alert and oriented x3; mood and affect slightly anxiousl. INVESTIGATIONS, reviewed in the clinical context: white count 10.1 hemoglobin 8 Previous testing White count 10.1 hemoglobin 8.4 platelets 270 potassium 3.3 creatinine 0.9 C-reactive protein 11 Assessment: -Acute severe flare of ulcerative colitis, improvingslowly -Chronic rheumatoid arthritis -Autoimmune pancreatitis given-chronic lupus -Moderate protein calorie malnutrition from decreased oral intake -Macrocytic anemia chronic disease, and blood loss anemia from GI tract Plan: Long discussions the patient. Should be able to/total oral prednisone tomorrow. She'll be sent ordered tapering dose. Diet is being advanced.
[2019-04-11] MEDS: MORPHINE SULFATE 4 MG/ML SYRINGE IV PRN ×3 (02:02→08:37)
[2019-04-11] MEDS: ONDANSETRON 4 MG/2 ML VIAL IVP PRN (05:09)
[2019-04-11 06:24] VITALS: BP 97/50; PULSE 56; TEMP 98.1
[2019-04-11] MEDS: PANTOPRAZOLE 40 MG/10 ML VIAL IV SCH (08:31)
[2019-04-11] MEDS ORDERED: predniSONE 20 MG TAB PO SCH (09:00)
[2019-04-11] MEDS: traMADol 50 MG TAB PO PRN (10:35)
--- NOTE | 2019-04-11 13:12 | P.PN ---
<JamieRosaNelia A - Last Filed: 04/11/19 13:05> Subjective Progress Note Date: 04/11/19 CHIEF COMPLAINT: Abdominal pain HISTORY OF PRESENT ILLNESS: Patient examined at the bedside. She is crying and very upset. She reports increased abdominal pain this morning after eating eggs and chadian toast. She denies nausea or vomiting. She denies having a bowel movement today. PHYSICAL EXAM: VITAL SIGNS: Reviewed. GENERAL: Well-developed in no acute distress. HEENT: No sclera icterus. Extraocular movements grossly intact. Moist buccal mucosa. Head is atraumatic, normocephalic. ABDOMEN: Soft. Distended. Diffuse mild tenderness. NEUROLOGIC: Alert and oriented. Cranial nerves II through XII grossly intact. ASSESSMENT: 1. Abdominal pain 2. Exacerbation of ulcerative colitis PLAN: Will downgrade diet back to full liquids as patient describes increased pain with solid food today Pain control Continue steroids per GI service Nurse practitioner note has been reviewed by physician. Signing provider agrees with the documented findings, assessment, and plan of care. Objective - Vital Signs Vital signs: Vital Signs Temp 98.1 F 04/11/19 04:40 Pulse 56 L 04/11/19 04:40 Resp 16 04/11/19 04:40 BP 97/50 04/11/19 04:40 Pulse Ox 96 04/11/19 04:40 Intake & Output 04/10/19 04/11/19 04/11/19 18:59 06:59 18:59 Intake Total 300 115 Balance 300 115 Weight 40.1 kg Intake: Oral 300 115 Other: # Voids 1 2 - Labs CBC & Chem 7: 04/09/19 07:17 04/06/19 13:05 Labs: Microbiology - Last 24 Hours (Table) 04/09/19 07:17 Blood Culture - Preliminary Blood No Growth after 48 hours <Sumanth Monaco - Last Filed: 04/11/19 15:26> Subjective As above. Patient discharged prior to my arrival. Objective - Vital Signs Vital signs: Vital Signs Temp 98.1 F 04/11/19 04:40 Pulse 56 L 04/11/19 04:40 Resp 16 04/11/19 04:40 BP 97/50 04/11/19 04:40 Pulse Ox 96 04/11/19 04:40 Intake & Output 04/10/19 04/11/19 04/11/19 18:59 06:59 18:59 Intake Total 300 115 Balance 300 115 Weight 40.1 kg Intake: Oral 300 115 Other: # Voids 1 2 - Labs CBC & Chem 7: 04/09/19 07:17 04/06/19 13:05 Labs: Microbiology - Last 24 Hours (Table) 04/09/19 07:17 Blood Culture - Preliminary Blood No Growth after 48 hours Assessment and Plan (1) Abdominal pain Status: Acute Code(s): R10.9 - UNSPECIFIED ABDOMINAL PAIN SNOMED Code(s): 04418867
--- NOTE | 2019-04-12 00:45 | P.DS ---
Providers Date of admission: 04/06/19 15:14 Expected date of discharge: 04/11/19 Attending physician: Sanya Guaman Consults: 04/06/19 15:32 Consult Physician Stat Consulting Provider: Emily Ruiz Consult Reason/Comments: Dehydration, ulcerative colitis Do you want consulting provider notified?: Yes 04/08/19 16:04 Consult Physician Urgent Consulting Provider: Sumanth Monaco Consult Reason/Comments: ulcerative colitis Do you want consulting provider notified?: Already Contacted Primary care physician: [facility] Course: Chief Complaint: Abdominal cramping Interval history: This is a very pleasant 43-year-old patient who follows with Dr. Richard. Patient also sees Dr. Kim the pheresis nurse. Also follows with Dr. Danuta Ruiz the licensed tax consultant. Patient has a known diagnosis of rheumatoid arthritis, autoimmune pancreatitis, ulcerative colitis and lupus. Patient also previously had the LEEP procedure for cervical cancer. Patient had been in remission for last 2 years. About 56 weeks ago patient started having increasing abdominal cramping and bloating of bloody stools. Patient is now up to eat today bloody stools a day. Patient's been losing weight not really able to eat much. Has been admitted fever up to 103. [place] become rather dry. Sometimes get blisters on the bouts of nose. Eyes are dry. Note note trouble with her menstrual cycle. In the evening of February states she Mildred the nurse practitioner Dr. Washington's office is put on prednisone. Decreased pedal for the same. His as prednisone was being weaned off her symptoms became worse. Also for 3 days patient been having cough congestion chest tightness., And went to Dr. Richard in the office and was found to be positive for influenza B. Patient went for the same. Started on IV fluids and Solu-Medrol. Admitted with severe flareup of ulcerative colitis. Recently positive for influenza B Today-abdominal cramping slowly improving. Intermittent bloating.better . told the patient to keep on full liquid diet. And advance slowly as tolerated. No blood in the stools. Few bowel movements a day. On oral prednisone 60 mg being discharged. Patient will decrease dose of prednisone by 5 mg weekly. Discussion and discharge planning more than 35 minutes Consultation: Dr. Danuta Ruiz from GI Physical examination: VITAL SIGNS: 98.1, 56, 16, 97/50, 96% room air GENERAL: Sitting up in bed, more comfortable EYES: [Pupils equal. Conjunctiva pale l. HEENT: External appearance of nose and ears normal, oral cavity grossly normal. NECK: JVD not raised; masses not palpable. HEART: First and second heart sounds are normal; no edema. LUNGS: Respiratory rate normal, fair entry ABDOMEN: Soft, minimal tenderness, mild bloating, no guarding rigidity, liver spleen not palpable, no masses palpable. PSYCH: Alert and oriented x3; mood and affect slightly anxiousl. INVESTIGATIONS, reviewed in the clinical context: white count 10.1 hemoglobin 8 Previous testing White count 10.1 hemoglobin 8.4 platelets 270 potassium 3.3 creatinine 0.9 C-reactive protein 11 Assessment: -Acute severe flare of ulcerative colitis, improving -Chronic rheumatoid arthritis -Autoimmune pancreatitis given-chronic lupus -Moderate protein calorie malnutrition from decreased oral intake -Macrocytic anemia chronic disease, and blood loss anemia from GI tract disposition: Home Patient Condition at Discharge: Stable Plan - Discharge Summary New Discharge Prescriptions: New predniSONE 0 mg PO DIRECTED #100 tab L.acidoph,Paracasei, B.lactis [Probiotic] 1 each PO TID #90 capsule Acetaminophen Tab [Tylenol] 650 mg PO Q6HR PRN tab PRN Reason: Mild Pain Or Fever > 100.5 Continue inFLIXimab [Remicade] 400 mg IVPB Q42D Iron Infusion 100 mg IVPB Q56D Multivitamins, Thera [Multivitamin (formulary)] 1 tab PO DAILY Discontinued predniSONE See Taper PO DAILY Discharge Medication List Iron Infusion 100 mg IVPB Q56D 04/06/19 [History] Multivitamins, Thera [Multivitamin (formulary)] 1 tab PO DAILY 04/06/19 [History] inFLIXimab [Remicade] 400 mg IVPB Q42D 04/06/19 [History] Acetaminophen Tab [Tylenol] 650 mg PO Q6HR PRN tab 04/11/19 [Rx] L.acidoph,Paracasei, B.lactis [Probiotic] 1 each PO TID #90 capsule 04/11/19 [Rx] predniSONE 0 mg PO DIRECTED #100 tab 04/11/19 [Rx] Follow up Appointment(s)/Referral(s): Boubacar Mccoy MD [Primary Care Provider] - 3 Days Emily Ruiz MD [STAFF PHYSICIAN] - 10 Days Patient Instructions/Handouts: Ulcerative Colitis (DC) Activity/Diet/Wound Care/Special Instructions: Full liquid diet. activity as tolerated. Avoid processed food heat packs as needed cbc/bmp- 5 days Discharge/Stand Alone Forms: Work/School Release / Restrict Discharge Disposition: HOME SELF-CARE
== END 2019-04-11 13:23 | disposition home or self-care (01) | DRG 386 ==
LOC: EC 12:12 → 6PED 15:14 → 6NMEDSUR 04-08 23:25
PROVIDERS: ADMIT Hospitalist; ATTEND Hospitalist
DX: K51.911 Ulcerative colitis, unspecified with rectal bleeding (principal); K86.1 Other chronic pancreatitis; E44.0 Moderate protein-calorie malnutrition; Z68.1 Body mass index [BMI] 19.9 or less, adult; D89.89 Other specified disorders involving the immune mechanism, not elsewhere classified; D50.9 Iron deficiency anemia, unspecified; D50.0 Iron deficiency anemia secondary to blood loss (chronic); E86.0 Dehydration; J10.1 Influenza due to other identified influenza virus with other respiratory manifestations; M06.9 Rheumatoid arthritis, unspecified; Z79.52 Long term (current) use of systemic steroids; Z86.19 Personal history of other infectious and parasitic diseases; Z85.41 Personal history of malignant neoplasm of cervix uteri; Z82.49 Family history of ischemic heart disease and other diseases of the circulatory system; Z83.3 Family history of diabetes mellitus; Z83.49 Family history of other endocrine, nutritional and metabolic diseases
CPT/HCPCS: 36415; 74019; 74177; 80053; 81001; 81025; 82150; 83605; 83690; 85025; 85652; 86140; 87040; 87324; 96361; 96374; 96375; 96376; 99285

== ENCOUNTER 2019-04-12 11:22 | Emergency (ER) | payer OTHER ==
[2019-04-12] MEDS ORDERED: SODIUM CHLORIDE 0.9% 1,000 ML IV STA (12:03)
[2019-04-12] MEDS ORDERED: ONDANSETRON 4 MG/2 ML VIAL IVP STA (12:18)
[2019-04-12] MEDS ORDERED: KETOROLAC 30 MG/ML 1 ML VIAL IVP STA (12:18)
[2019-04-12 12:26] LABS: ALT 17 U/L (4-34); AST 24 U/L (14-36); African American GFR (CKD) >90 (>60 ml/min/1.73 sqM); Albumin 4.4 g/dL (3.5-5.0); Alkaline Phosphatase 66 U/L (38-126); Amylase 40 U/L (30-110); Anion Gap 10 mmol/L; Blood Urea Nitrogen 16 mg/dL (7-17); Calcium 9.9 mg/dL (8.4-10.2); Carbon Dioxide 30 mmol/L (22-30); Chloride 100 mmol/L (98-107); Glucose 82 mg/dL (74-99); Non-African American GFR(CKD) >90 (>60 ml/min/1.73 sqM); Potassium 4.1 mmol/L (3.5-5.1); Sodium 140 mmol/L (137-145); Total Bilirubin 0.7 mg/dL (0.2-1.3); Total Protein 7.8 g/dL (6.3-8.2)
--- NOTE | 2019-04-12 12:27 | ED ---
General Adult HPI - General Chief complaint: Abdominal Pain Stated complaint: Pain all over discharged here 04/11/19 Time Seen by Provider: 04/12/19 11:51 Source: patient, RN notes reviewed Mode of arrival: wheelchair Limitations: no limitations - History of Present Illness Initial comments: 23-year-old female with a past medical history of ulcerative colitis, lupus, autoimmune pancreatitis presents to the emergency department for abdominal pain. Patient states she has had abdominal pain over a week. States she was recently admitted to the hospital for this pain and released yesterday. Patient states that she is still having significant abdominal pain. States she ate one egg for breakfast at home and then this started again. Mother states she no longer knows what to do to help her. Patient states she does follow up with Dr. Ruiz as her GI specialist. Patient did have a CT done here in the hospital this week which showed mild wall thickening of the sigmoid colon consistent with colitis. She had a colonoscopy in June that showed colitis according to her mother. Patient was seen by GI and surgery.Patient has no other complaints at this time including shortness of breath, chest pain, nausea or vomiting, headache, or visual changes. - Related Data Home Medications Medication Instructions Recorded Confirmed Iron Infusion 100 mg IVPB Q56D 04/06/19 04/06/19 Multivitamins, Thera [Multivitamin 1 tab PO DAILY 04/06/19 04/06/19 (formulary)] inFLIXimab [Remicade] 400 mg IVPB Q42D 04/06/19 04/06/19 Previous Rx's Medication Instructions Recorded Acetaminophen Tab [Tylenol] 650 mg PO Q6HR PRN tab 04/11/19 L.acidoph,Paracasei, B.lactis 1 each PO TID #90 capsule 04/11/19 [Probiotic] predniSONE 0 mg PO DIRECTED #100 tab 04/11/19 Allergies Allergy/AdvReac Type Severity Reaction Status Date / Time No Known Allergies Allergy Verified 04/12/19 11:31 Review of Systems ROS Statement: Those systems with pertinent positive or pertinent negative responses have been documented in the HPI. ROS Other: All systems not noted in ROS Statement are negative. Past Medical History Past Medical History: Rheumatoid Arthritis (RA) Additional Past Medical History / Comment(s): ulcerative colitis, lupus, autoimmune pancreatitis. HASNT HAD FLARE OF COLITIS OR PANCREATITIS FOR 2 YEARS. THIS PAST MONTH WITH WORSENING BELLY SYMPTOMS History of Any Multi-Drug Resistant Organisms: C-DIFF Date of last positivie culture/infection: 2016 MDRO Source:: STOOL Past Surgical History: Section, Orthopedic Surgery Past Psychological History: No Psychological Hx Reported, Unable to Obtain Smoking Status: Never smoker Past Alcohol Use History: None Reported Past Drug Use History: None Reported - Past Family History Mother Family Medical History: Diabetes Mellitus, Hyperlipidemia, Hypertension, Thyroid Disorder Father History Unknown: Yes Family Medical History: Hypertension General Exam Limitations: no limitations General appearance: alert, in no apparent distress Head exam: Present: atraumatic, normocephalic, normal inspection Eye exam: Present: normal appearance, PERRL, EOMI. Absent: scleral icterus, conjunctival injection, periorbital swelling ENT exam: Present: normal exam, mucous membranes moist Neck exam: Present: normal inspection, full ROM. Absent: tenderness, meningismus, lymphadenopathy Respiratory exam: Present: normal lung sounds bilaterally. Absent: respiratory distress, wheezes, rales, rhonchi, stridor Cardiovascular Exam: Present: regular rate, normal rhythm, normal heart sounds. Absent: systolic murmur, diastolic murmur, rubs, gallop, clicks GI/Abdominal exam: Present: soft, distended (minimal distention), tenderness (Generalized abdominal tenderness), normal bowel sounds. Absent: guarding, re bound, rigid Course Vital Signs 04/12/19 11:28 Temperature 98.6 F Pulse Rate 88 Respiratory 18 Rate Blood Pressure 114/78 O2 Sat by Pulse 99 Oximetry Medical Decision Making - Medical Decision Making Patient's previous reports were reviewed from inpatient stay. Patient had gener alized abdominal tenderness. CBC CMP amylase and lipase are unremarkable. Urinalysis unremarkable. Patient was given pain medication which did improve her pain significant relief. On reevaluation however she is complaining of pain mostly in the right upper quadrant radiating to the right shoulder. Therefore an ultrasound was ordered of the gallbladder which showed cholelithiasis with tumefactive sludge with a thickened wall and contracted appearance consider chronic cholelithiasis. 0.8 cm common bile duct. Patient did see Dr. Parker in the hospital and therefore will be referred to him. I recommended a low-fat diet. Recommended she return here if she has any worsening symptoms or is not able to tolerate foods at home. - Lab Data Result diagrams: 04/12/19 12:06 04/12/19 12:06 Lab Results 04/12/19 04/12/19 04/12/19 Range/Units 12:06 12:06 12:55 WBC 10.6 (3.8-10.6) k/uL RBC 5.25 (3.80-5.40) m/uL Hgb 11.1 L D (11.4-16.0) gm/dL Hct 36.9 (34.0-46.0) % MCV 70.3 L (80.0-100.0) fL MCH 21.1 L (25.0-35.0) pg MCHC 30.0 L (31.0-37.0) g/dL RDW 18.5 H (11.5-15.5) % Plt Count 511 H (150-450) k/uL Neutrophils % 62 % Lymphocytes % 28 % Monocytes % 6 % Eosinophils % 1 % Basophils % 1 % Neutrophils # 6.6 (1.3-7.7) k/uL Lymphocytes # 3.0 (1.0-4.8) k/uL Monocytes # 0.6 (0-1.0) k/uL Eosinophils # 0.1 (0-0.7) k/uL Basophils # 0.1 (0-0.2) k/uL Hypochromasia Marked Poikilocytosis Slight Anisocytosis Slight Microcytosis Marked Sodium 140 (137-145) mmol/L Potassium 4.1 (3.5-5.1) mmol/L Chloride 100 (98-107) mmol/L Carbon Dioxide 30 (22-30) mmol/L Anion Gap 10 mmol/L BUN 16 (7-17) mg/dL Creatinine 0.76 (0.52-1.04) mg/dL Est GFR (CKD-EPI)AfAm >90 (>60 ml/min/1.73 sqM) Est GFR (CKD-EPI)NonAf >90 (>60 ml/min/1.73 sqM) Glucose 82 (74-99) mg/dL Calcium 9.9 (8.4-10.2) mg/dL Total Bilirubin 0.7 (0.2-1.3) mg/dL AST 24 (14-36) U/L ALT 17 (4-34) U/L Alkaline Phosphatase 66 (38-126) U/L Total Protein 7.8 (6.3-8.2) g/dL Albumin 4.4 (3.5-5.0) g/dL Amylase 40 (30-110) U/L Lipase 43 (23-300) U/L Urine Color Yellow Urine Appearance Cloudy H (Clear) Urine pH 8.0 (5.0-8.0) Ur Specific [place] 1.024 (1.001-1.035) Urine Protein Trace H (Negative) Urine Glucose (UA) Negative (Negative) Urine Ketones Negative (Negative) Urine Blood Small H (Negative) Urine Nitrite Negative (Negative) Urine Bilirubin Negative (Negative) Urine Urobilinogen 2.0 (<2.0) mg/dL Ur Leukocyte Esterase Negative (Negative) Urine RBC 29 H (0-5) /hpf Urine WBC 6 H (0-5) /hpf Ur Squamous Epith Cells 6 H (0-4) /hpf Amorphous Sediment Rare H (None) /hpf Urine Bacteria Occasional H (None) /hpf Urine Mucus Many H (None) /hpf Disposition Clinical Impression: Gall stones Disposition: HOME SELF-CARE Condition: Good Instructions (If sedation given, give patient instructions): Biliary Colic (ED), Low Fat Diet (ED) Additional Instructions: Please take to a low-fat diet. Please follow-up with Dr. Monaco as well as GI. If you have any worsening symptoms return to the emergency department. If you are not able to tolerate liquids over the next couple days and return to the emergency Dept, Is patient prescribed a controlled substance at d/c from ED?: No Referrals: Boubacar Mccoy MD [Primary Care Provider] - 1-2 days Sumanth Monaco MD [Medical Doctor] - 1-2 days Time of Disposition: 15:07
[2019-04-12 12:43] LABS: Anisocytosis Slight; Basophils # (A) 0.1 k/uL (0-0.2); Basophils % (A) 1 %; Eosinophils # (A) 0.1 k/uL (0-0.7); Eosinophils % (A) 1 %; HCT 36.9 % (34.0-46.0); Hypochromasia Marked; Lymphocytes % (A) 28 %; MCH 21.1 pg (25.0-35.0); MCV 70.3 fL (80.0-100.0); Mean Platelet Volume 6.9; Microcytosis Marked; Monocytes # (A) 0.6 k/uL (0-1.0); Monocytes % (A) 6 %; Neutrophils # (A) 6.6 k/uL (1.3-7.7); Neutrophils % (A) 62 %; Platelet Count 511 k/uL (150-450); Poikilocytosis Slight; RBC 5.25 m/uL (3.80-5.40); RDW 18.5 % (11.5-15.5); WBC 10.6 k/uL (3.8-10.6)
[2019-04-12 12:48] LABS: HGB 11.1 gm/dL (11.4-16.0)
[2019-04-12] MEDS ORDERED: MORPHINE SULFATE 4 MG/ML SYRINGE IVP STA ×2 (12:55→15:42)
[2019-04-12 13:35] LABS: Amorphous Sediment,Urine Rare /hpf; Appearance,Urine Cloudy (Clear); Bacteria,Urine Occasional /hpf; Bilirubin,Urine Negative (Negative); Blood,Urine Small (Negative); Color,Urine Yellow; Glucose,Urine (UA) Negative (Negative); Ketones,Urine Negative (Negative); Leukocyte Esterase,Urine Negative (Negative); Mucus,Urine Many /hpf; Nitrite,Urine Negative (Negative); Protein,Urine Trace (Negative); RBC,Urine 29 /hpf (0-5); Specific Gravity,Urine 1.024 (1.001-1.035); Squamous Epithelial Cell,Urine 6 /hpf (0-4); WBC,Urine 6 /hpf (0-5)
--- NOTE | 2019-04-12 14:27 | US ---
EXAMINATION TYPE: US abdomen limited DATE OF EXAM: 04/12/2019 COMPARISON: CT dated 04/08/2019 CLINICAL HISTORY: RUQ. pain EXAM MEASUREMENTS: Liver Length: 10.7 cm Gallbladder Wall: 0.3 cm CBD: 0.8 cm Right Kidney: 8.7 x 3.9 x4.5 cm Pancreas: visualized portions wnl Liver: wnl Gallbladder: full of sludge/small stones. Evidence for sonographic Sapp's sign: Yes CBD: dilated at 0.8 cm Right Kidney: No hydronephrosis or masses seen, lower pole partially obscured by bowel gas. There is no ascites. IMPRESSION: Cholelithiasis with tumefactive sludge noted within the gallbladder which shows a thicken ed wall and contracted appearance, consider chronic cholelithiasis. Mildly limited exam. Dilated comm on bile duct, consider gastroenterology consult
[2019-04-12 16:36] VITALS: BP 114/83; PULSE 63; RESP 18; TEMP 97.8
== END 2019-04-12 16:36 | disposition home or self-care (01) ==
LOC: EC 11:22
DX: K80.20 Calculus of gallbladder without cholecystitis without obstruction (principal)
CPT/HCPCS: 99284; 96374; 96375 ×3; 96361; 36415; 80053; 82150; 83690; 85025; 81001; 76705; J2270; J2405; J1885

== ENCOUNTER 2019-04-15 08:45 | Day surgery (SDC) | payer OTHER ==
[2019-04-14 08:47] VITALS: BMI 17.6
[~2019-04-15 08:45] MED LIST: DEXAMETHASONE SOD PHOSPHATE 10 MG/ML 1 ML VIAL IV ONE; HEPARIN SODIUM,PORCINE 5,000 UNIT/ML 1 ML VIAL SQ ONE; LACTATED RINGERS 1,000 ML IV SCH; LIDOCAINE 1% 20 ML VIAL (10MG/ML) FOR IV START INTRADERMA PRN; ONDANSETRON 4 MG/2 ML VIAL IVP ONE
[2019-04-15 09:37] LABS: Glucose,Whole Blood 91 mg/dL (75-99)
[2019-04-15] MEDS ORDERED: SCOPOLAMINE 1.5MG/72HR PATCH TRANSDERM ONE (09:38)
[2019-04-15] MEDS ORDERED: KETOROLAC 30 MG/ML 1 ML VIAL ONE (09:55)
[2019-04-15] MEDS ORDERED: NEOSTIGMINE 1 MG/ML 10 ML VIAL ONE (09:55)
[2019-04-15] MEDS ORDERED: HYDROmorphone (PF) 1 MG/ML ONE (09:55)
[2019-04-15] MEDS ORDERED: PROPOFOL 10 MG/ML 20 ML VIAL IV ONE (09:55)
[2019-04-15] MEDS ORDERED: fentaNYL (PF) 50 MCG/ML 2 ML AMP ONE (09:55)
[2019-04-15] MEDS ORDERED: MIDAZOLAM 2 MG/2 ML VIAL ONE (09:55)
[2019-04-15] MEDS ORDERED: SUCCINYLCHOLINE CHLORIDE 100 MG/5 ML SYR IV ONE (09:55)
[2019-04-15] MEDS ORDERED: GLYCOPYRROLATE 0.2 MG/ML 2 ML VIAL ONE (09:55)
[2019-04-15] MEDS ORDERED: ROCURONIUM BROMIDE 10 MG/ML 10 ML VIAL IV ONE (09:55)
[2019-04-15] MEDS ORDERED: LIDOCAINE 1% INJ 10MG/ML (20 ML MDV) ONE (09:55)
[2019-04-15] MEDS ORDERED: BUPIVACAINE (PF) 0.25% 30 ML VIAL SQ ONE ×2 (10:13→10:30)
[2019-04-15] MEDS ORDERED: NALOXONE 0.4 MG/ML 1 ML VIAL IV PRN (11:02)
[2019-04-15] MEDS ORDERED: HYDROcodone/APAP 5-325MG 1 EACH TAB PO PRN (11:02)
--- NOTE | 2019-04-15 11:05 | P.OP ---
Date of Procedure: 04/15/19 Procedure(s) Performed: PREOPERATIVE DIAGNOSIS: Chronic cholecystitis POSTOPERATIVE DIAGNOSIS: Same PROCEDURE: Laparoscopic cholecystectomy SURGEON: Jacinda EBL: Minimal see anesthesia record ANESTHESIA: Gen. COMPLICATIONS: None OPERATIVE PROCEDURE: The patient was brought and placed on the operating room table in the supine position. The patient was placed under general anesthesia at that time. The abdomen was prepped and draped in the usual sterile fashion. A small vertical infraumbilical incision was made. The fascia was grasped with the Kranthi forceps. The fascia was retracted anteriorly. The Veress needle was advanced into the peritoneal cavity. The saline drop test was normal. Insufflation took place up to 15 mmHg. A 5 mm optical trocar was advanced and the peritoneal cavity. 2 additional 5 mm trochars were placed in the right upper quadrant under direct visualization. A 12 mm trocar was advanced into the epigastric incision site. The gallbladder was retracted superiorly and laterally. The peritoneum overlying the infundibulum was bluntly dissected. The patient's cystic duct was visualized. The junction between the cystic duct common and hepatic duct was identified. The cystic duct was then divided after placement of 3 12 mm clips on the patient's side and one on the specimen side. The cystic artery was identified and clipped as well. A small vessel was seen along the gallbladder fossa and clipped as well. The gallbladder was then removed from the liver bed using electrocautery. The gallbladder was then removed from the epigastric trocar site with an Endo Catch bag. The gallbladder fossa was irrigated with saline. There was no evidence of any bleeding or biliary drainage seen. The fascia at the 12 millimeter site was closed using a Rommel-Rina 0 Vicryl stitch. The trochars were then removed. The skin at all 4 sites was closed using a 4-0 Monocryl stitch. Skin glue was utilized on the incision sites. At the end of this procedure the sponge and needle counts were correct. DISPOSITION: Stable to the recovery room
[2019-04-15] MEDS: HYDROmorphone 0.5 MG/0.5 ML SYRINGE IVP PRN ×4 (11:21→12:03)
[2019-04-15] MEDS: MIDAZOLAM 2 MG/2 ML VIAL IVP ONE ×2 (11:26→12:17)
[2019-04-15 11:27] VITALS: TEMP 98.4
[2019-04-15] MEDS: fentaNYL (PF) 50 MCG/ML 2 ML AMP IV PRN ×2 (11:30→11:35)
[2019-04-15] MEDS ORDERED: LACTATED RINGERS 1,000 ML IV ONE (12:01)
[2019-04-15 12:14] VITALS: RESP 16
[2019-04-15] MEDS ORDERED: KETOROLAC 30 MG/ML 1 ML VIAL IVP ONE (12:17)
[2019-04-15] MEDS ORDERED: HYDROcodone/APAP 5-325MG 1 EACH TAB PO ONE (13:00)
[2019-04-15 13:35] VITALS: BP 127/82; PULSE 65
== END 2019-04-15 13:50 | disposition home or self-care (01) ==
LOC: OR 08:45
PROVIDERS: ATTEND Surgery
DX: K81.1 Chronic cholecystitis (principal); M06.9 Rheumatoid arthritis, unspecified; K51.90 Ulcerative colitis, unspecified, without complications; M32.9 Systemic lupus erythematosus, unspecified; K86.1 Other chronic pancreatitis; K86.81 Exocrine pancreatic insufficiency; D64.9 Anemia, unspecified; K21.9 Gastro-esophageal reflux disease without esophagitis; Z79.899 Other long term (current) drug therapy; Z98.890 Other specified postprocedural states; Z86.19 Personal history of other infectious and parasitic diseases; Z79.52 Long term (current) use of systemic steroids; Z79.891 Long term (current) use of opiate analgesic; Z85.41 Personal history of malignant neoplasm of cervix uteri; Z83.3 Family history of diabetes mellitus; Z82.49 Family history of ischemic heart disease and other diseases of the circulatory system
CPT/HCPCS: 81025; 88304; 47562; J2250; J1644; J1100; J2710; J0690; J2405; J2001; J3010; J1885; J1170 ×2; J0330; J2704

== ENCOUNTER → 2019-05-05 | Outpatient (CLI) | payer OTHER ==
[2019-05-05 16:26] LABS: Anisocytosis Slight; Basophils % (A) 0 %; Eosinophils # (A) 0.1 k/uL (0-0.7); Eosinophils % (A) 2 %; HCT 31.4 % (34.0-46.0); Hypochromasia Marked; Lymphocytes # (A) 2.7 k/uL (1.0-4.8); Lymphocytes % (A) 33 %; MCH 21.9 pg (25.0-35.0); MCHC 29.2 g/dL (31.0-37.0); MCV 75.2 fL (80.0-100.0); Mean Platelet Volume 6.4; Microcytosis Moderate; Monocytes # (A) 0.4 k/uL (0-1.0); Monocytes % (A) 5 %; Neutrophils # (A) 4.5 k/uL (1.3-7.7); Neutrophils % (A) 55 %; Platelet Count 351 k/uL (150-450); RBC 4.17 m/uL (3.80-5.40); RDW 18.6 % (11.5-15.5); WBC 8.1 k/uL (3.8-10.6)
[2019-05-05 16:40] LABS: HGB 9.1 gm/dL (11.4-16.0)
== END | disposition home or self-care (01) ==
LOC: LABWHC1 15:48
PROVIDERS: ATTEND Nurse Practitioner
DX: D50.9 Iron deficiency anemia, unspecified (principal)
CPT/HCPCS: 36415; 85025

== ENCOUNTER → 2019-05-20 | Outpatient (CLI) | payer OTHER ==
[2019-05-20 09:19] LABS: Anisocytosis Slight; Basophils % (A) 0 %; Eosinophils # (A) 0.1 k/uL (0-0.7); Eosinophils % (A) 2 %; HCT 33.9 % (34.0-46.0); HGB 9.8 gm/dL (11.4-16.0); Hypochromasia Marked; Lymphocytes # (A) 1.8 k/uL (1.0-4.8); Lymphocytes % (A) 27 %; MCH 21.6 pg (25.0-35.0); MCHC 28.9 g/dL (31.0-37.0); MCV 74.7 fL (80.0-100.0); Mean Platelet Volume 6.9; Microcytosis Moderate; Monocytes # (A) 0.3 k/uL (0-1.0); Monocytes % (A) 4 %; Neutrophils # (A) 4.2 k/uL (1.3-7.7); Neutrophils % (A) 63 %; Platelet Count 392 k/uL (150-450); RBC 4.53 m/uL (3.80-5.40); RDW 17.1 % (11.5-15.5); WBC 6.7 k/uL (3.8-10.6)
[2019-05-20 16:42] LABS: ALT 17 U/L (8-44); AST 21 U/L (13-35); African American GFR (CKD) 140.6 (60.0-200.0); Albumin/Globulin Ratio 1.96 (1.60-3.17); Alkaline Phosphatase 73 U/L (41-126); Calcium 9.1 mg/dL (8.7-10.3); Carbon Dioxide 28.1 mmol/L (21.6-31.8); Chloride 105 mmol/L (96-109); Chol/HDL Ratio 2.96; Cholesterol 198 mg/dL (0-200); Globulin 2.3 g/dL (1.6-3.3); Glucose 80 mg/dL (70-110); Non-African American GFR(CKD) 121.3 (60.0-200.0); Potassium 4.5 mmol/L (3.5-5.5); Sodium 141 mmol/L (135-145); Total Bilirubin 0.3 mg/dL (0.3-1.2); Total Protein 6.8 g/dL (6.2-8.2); Triglycerides <50.0 mg/dL (0.0-149.0)
[2019-05-20 17:01] LABS: Hepatitis A Antibody IgM Non-Reactive (Non-Reactive); Hepatitis B Core IgM Non-Reactive (Non-Reactive); Hepatitis B Surface Antigen Non-Reactive (Non-Reactive); Hepatitis C IgG Antibody Non-Reactive (Non-Reactive)
== END | disposition home or self-care (01) ==
LOC: LABWHC1 08:35
PROVIDERS: ATTEND Nurse Practitioner
DX: K51.90 Ulcerative colitis, unspecified, without complications (principal)
CPT/HCPCS: 36415; 80053; 80061; 80074; 85025; 86480